=== PATIENT | male | born 1995 | race Two or more races ===

== ENCOUNTER 2018-10-17 11:16 | Emergency (ER) | payer MEDICAID ==
[~2018-10-17] VITALS: Ht 180.3 cm; Wt 59.0 kg
[2018-10-17 11:22] VITALS: BP 124/80
== END 2018-10-17 12:24 | disposition home or self-care (01) ==
LOC: ER 11:19
DX: E11.9 Type 2 diabetes mellitus without complications (principal); R50.9 Fever, unspecified; I10 Essential (primary) hypertension; Z76.0 Encounter for issue of repeat prescription

== ENCOUNTER 2018-12-04 13:32 | Emergency (ER) | payer MEDICAID ==
[~2018-12-04] VITALS: Ht 180.3 cm; Wt 55.3 kg
[2018-12-04] MEDS ORDERED: IV NS 0.9% 1,000 ML BAG IV ONE ×2 (14:00→15:00)
[2018-12-04 14:04] LABS: BASOPHILS % (AUTO) 0.4 % (0.0-2.0); EOSINOPHILS % (AUTO) 0.4 % (0.0-6.0); HEMATOCRIT 50 % (39-51); HEMOGLOBIN 16.9 g/dL (13.5-17.5); LYMPHOCYTES # (AUTO) 1.6 /CMM (0.8-4.8); LYMPHOCYTES % (AUTO) 25.1 % (20.0-44.0); MEAN CORPUSCULAR HGB CONC 34 g/dl (31.0-36.0); MEAN CORPUSCULAR VOLUME 92 fL (80-96); MONOCYTES # (AUTO) 0.3 /CMM (0.1-1.30); MONOCYTES % (AUTO) 5.1 % (2.0-12.0); NEUTROPHILS # (AUTO) 4.5 /CMM (1.8-8.9); PLATELET COUNT (AUTO) 401 /CMM (150-450); WHITE BLOOD COUNT (AUTO) 6.5 K/uL (4.3-11.0)
[2018-12-04 14:09] LABS: APPEARANCE,URINE Clear (CLEAR); BILIRUBIN,URINE SMALL (NEGATIVE); BLOOD, URINE Negative Ery/uL (NEGATIVE); COLOR,URINE Yellow (YELLOW); KETONES,URINE 80 (NEGATIVE); LEUKOCYTE ESTERASE ,URINE Negative (NEGATIVE); NITRITE, URINE Negative (NEGATIVE); PH,URINE 5.5 (5.0-8.0); PROTEIN,URINE Negative (NEGATIVE); UGLUCOSE 500 MG/DL mg/dL (NEGATIVE); UROBILINOGEN,URINE 0.2 EU/dL (0.2)
[2018-12-04 14:47] LABS: ALBUMIN 4.6 g/dL (3.4-5.0); BILIRUBIN,DIRECT 0.2 mg/dL (0.0-0.2); BILIRUBIN,TOTAL 0.8 mg/dL (0.2-1.0); CALCIUM, SERUM 9.9 mg/dL (8.5-10.1); CREATININE 0.9 mg/dL (0.6-1.3); POTASSIUM 4.6 mmol/L (3.5-5.1); TOTAL PROTEIN, SERUM 8.5 g/dL (6.4-8.2)
[2018-12-04] MEDS ORDERED: INSULIN REGULAR, HUMAN 100 UNIT/ML 10 ML VIAL SQ ONE (15:00)
[2018-12-04] MEDS ORDERED: INSULIN REGULAR, HUMAN 100 UNIT/ML 10 ML VIAL ONE (15:08)
[2018-12-04] MEDS ORDERED: MORPHINE SULFATE INJ 2 MG/ML DISP.SYRIN IV ONE (15:30)
[2018-12-04] MEDS ORDERED: ONDANSETRON HCL/PF 4 MG/2 ML VIAL IV ONE (15:30)
[2018-12-04] MEDS ORDERED: MORPHINE SULFATE INJ 4 MG/ML DISP.SYRIN ONE (15:31)
[2018-12-04] MEDS ORDERED: ONDANSETRON HCL/PF 4 MG/2 ML VIAL ONE (15:31)
--- NOTE | 2018-12-04 15:47 | NUR ---
Patient discharged to home in stable condition. Written and verbal after care instructions given. Patient verbalizes understanding of instruction.
--- NOTE | 2018-12-04 15:47 | NUR ---
IV removed. Catheter intact and site benign. Pressure and 4x4 applied to site. No bleeding noted.
[2018-12-04 15:48] VITALS: BP 118/53
== END 2018-12-04 15:49 | disposition home or self-care (01) ==
LOC: ER 13:32
DX: E11.65 Type 2 diabetes mellitus with hyperglycemia (principal); R00.0 Tachycardia, unspecified; Z59.0 Homelessness
CPT/HCPCS: 36415; 80048; 80076; 81001; 82010; 82962; 83690; 85025; 96361; 96372; 96374; 99283; J1815; J2405; 81000-TC; J2270

== ENCOUNTER 2019-05-24 13:33 | Emergency (ER) | payer SELFPAY ==
[~2019-05-24] VITALS: Ht 182.9 cm; Wt 70.3 kg
[2019-05-24 13:48] VITALS: BP 113/41
--- NOTE | 2019-05-24 14:21 | NUR ---
Patient discharged to home in stable condition. Written and verbal after care instructions given. Patient verbalizes understanding of instruction.
== END 2019-05-24 14:22 | disposition home or self-care (01) ==
LOC: ER 13:34
DX: Z76.0 Encounter for issue of repeat prescription (principal); E10.9 Type 1 diabetes mellitus without complications